=== PATIENT | female | born 1970 | race Caucasian/White ===

== ENCOUNTER 2017-05-12 17:42 | Emergency (ER) | payer SELFPAY ==
[2017-05-12 17:46] VITALS: BP 133/63; PULSE 87; RESP 16; TEMP 97.8; O2SAT 99
--- NOTE | 2017-05-12 17:53 | PD ---
HPI Chief Complaint: Injury Time Seen by Provider: 17:49 Travel History International Travel<30 days: No Contact w/Intl Traveler<30days: No Traveled to known affect area: No History of Present Illness HPI This is a 47-year-old female who presents to the emergency department having stepped wrong on a step and dorsiflexed her foot causing severe pain in the top of her left foot, constant, moderate severity. She has no pain in her ankle and she has no other injuries. [facility] Past Medical History Medical History: Denies Significant Hx Social History Alcohol Use: No Tobacco Use: No Substance Use: No Allergies-Medications (Allergen,Severity, Reaction): Coded Allergies: Penicillin (Verified Allergy, Severe, 05/12/17) Reported Meds & Prescriptions Reported Meds & Active Scripts Active No Active Prescriptions or Reported Medications Review of Systems General / Constitutional: No: Fever, Chills Cardiovascular: No: Chest Pain or Discomfort Respiratory: No: Cough, Shortness of Breath Physical Exam Narrative GENERAL: Well-appearing, no acute distress, nontoxic SKIN: Ecchymoses over the great toe and distal first and second metatarsals of the left foot. HEAD: Atraumatic. Normocephalic. ENT: No nasal bleeding or discharge. Moist mucous membranes MUSCULOSKELETAL: Tender to palpation over the distal first and second metatarsals of the left foot. Able to dorsiflex and plantar flex the ankle without difficulty, no focal tenderness over the medial or lateral malleolus of the left ankle. NEUROLOGICAL: Awake and alert. No obvious cranial nerve deficits. Motor grossly within normal limits. Normal speech. Sensation is grossly intact in the left foot. PSYCHIATRIC: Appropriate mood and affect; insight and judgment normal. Data Data Last Documented VS Vital Signs Date Time Temp Pulse Resp B/P Pulse Ox O2 Delivery O2 Flow Rate FiO2 05/12/17 17:46 97.8 87 16 133/63 99 Room Air Orders Foot, Complete ([id number]) (05/12/17 ) Ibuprofen (Motrin) (05/12/17 18:00) MDM Medical Decision Making Medical Screen Exam Complete: Yes Emergency Medical Condition: Yes Interpretation(s) Last 24 hours Impressions Foot X-Ray 05/12/17 0000 Signed Impressions: Service Date/Time: Friday, May 12, 2017 18:04 - CONCLUSION: First proximal phalanx fracture. Jassi Pugh MD Differential Diagnosis Proximal phalanx fracture, metatarsal fracture, contusion Narrative Course This is a 47-year-old female who presents to the emergency department having sustained an injury to her foot. She has a first proximal phalanx fracture on x -ray. She has a normal neurovascular exam. I think she is appropriate for outpatient follow-up with podiatry and post-op shoe Diagnosis Primary Impression: Fractured great toe Qualified Code: S92.415A - Closed nondisplaced fracture of proximal phalanx of left great toe, initial encounter Patient Instructions: General Instructions Additional Instructions: Follow-up with a briquette molder as soon as possible. Weight bear as little as possible on your left foot until you see a foot doctor. Med/Other Pt SpecificInfo: No Change to Meds Scripts No Active Prescriptions or Reported Meds Disposition: 01 DISCHARGE HOME Condition: Stable Jennifer Bella MD May 12, 2017 17:53
[2017-05-12] MEDS ORDERED: IBUPROFEN 600 MG TAB PO ONE (18:00)
--- NOTE | 2017-05-12 18:25 | RADRPT ---
EXAM DATE/TIME: 05/12/2017 18:04 [facility] COMPARISON: No previous studies available for comparison. INDICATIONS : Fell last night, foot pain. MEDICAL HISTORY : None. SURGICAL HISTORY : None. ENCOUNTER: Initial ACUITY: 1 day PAIN SCORE: 8/10 LOCATION: Left foot FINDINGS: There is an oblique fracture through the mid and distal aspect of the first distal phalanx extending into the interphalangeal joint. This appears nondisplaced. CONCLUSION: First proximal phalanx fracture. Jassi Pugh MD on May 12, 2017 at 18:22 Board Certified Radiologist. This report was verified electronically.
== END 2017-05-12 19:28 | disposition home or self-care (01) ==
LOC: NEPD 17:42
DX: S92.415A Nondisplaced fracture of proximal phalanx of left great toe, initial encounter for closed fracture (principal); X58.XXXA Exposure to other specified factors, initial encounter
CPT/HCPCS: 73630; 99283; E0113; L3260